=== PATIENT | female | born 1965 | race Two or more races ===

== ENCOUNTER 2022-08-10 16:44 | Emergency (ER) | payer SELFPAY ==
[~2022-08-10] VITALS: Ht 165.1 cm; Wt 75.0 kg
[2022-08-10 17:04] VITALS: BP 138/83
== END 2022-08-10 16:54 | disposition left against medical advice (07) ==
LOC: ER 16:44
DX: R21 Rash and other nonspecific skin eruption (principal); I10 Essential (primary) hypertension; Z53.21 Procedure and treatment not carried out due to patient leaving prior to being seen by health care provider
CPT/HCPCS: 99281